=== PATIENT | male | born 1985 | race African-American/Black ===

== ENCOUNTER 2021-08-22 08:02 | Outpatient (CLI) | payer OTHER ==
[2021-08-22 09:13] VITALS: BP 125/87
--- NOTE | 2021-08-22 09:13 | SLEEP CARE CONSULTATION ---
Information from patient questionnaire entered by Chas Sadler MA. I have reviewed and concur with the information entered by Chas Sadler MA. This document represents the service I personally performed and the decisions made by me, Alayna Sherman ARNP. History of Present Illness Service Date and Time: 08/22/2021 0802 Reason for Visit: New patient (ONSET 01/2021, NO PRIORS, ) Chief Complaint: reports: Unrefreshed sleep, Snoring, Observed pauses in breat bladimir Date of Onset: 1 YEAR Usual bedtime: 8-10 PM Time it takes to fall asleep: 30 MINUTES Snores at night: Yes Observed to quit breathing while asleep: Yes Sleeps alone due to snoring: No Number of times waking at night: 2-3, sometimes less Reasons for waking at night: reports: Snoring, Gasping for air, Other (unknown reasons) Toss, Turn, or Twitch while sleeping: Yes Recalls having dreams: Yes Usually gets out of bed at: 0500; weekends [id number] Feels refreshed in the morning: No (not rested but unable to go back to sleep) Morning headache: No Sleepy or fatigued during the day: Yes Ever fallen asleep while driving: No Takes day naps: Yes (1-2 times on weekends) Dreams during day naps: Yes Prior sleep studies: No Additional HPI information: I had the pleasure of seeing EDGAR RICO today regarding the possibility of him having a sleep disorder. His current complaints are snoring and observed pauses in breathing. He states his fiance told him he is snoring loudly and that he stops breathing when sleeping. He has woken himself up snoring and maybe once gasping for air. 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 Patient is Single and lives in . Have you smoked in the past 12 months: No Cigarettes per day (20/pack): 20 Years of smokin Quit date: 12/2019 Smoking Pack Years: 2.0 Alcohol use: Yes Alcohol amount and frequency: 1XMONTHLY Caffeine use: Yes Caffeine amount and frequency: 1-2 X DAILY Family History Family history of sleep disordered breathing: Yes Family Hx Sleep Apnea: Father: Snoring, Sleep apnea - Treated Allergies and Home Medications Known drug allergies: No Drug allergies reviewed: Yes (NKDA) Home medication list reviewed: Yes Allergy and home medication list: Medications: Pantoprazole Fluticasone inhaler bid Albuterol inhaler, prn Review of Systems Cardiovascular: denies: high blood pressure Gastrointestinal: reports: heartburn Neurological: denies: headaches, head trauma Psychiatric: reports: anxiety, depression. denies: mood disorder Ear/Nose/Throat: reports: wisdom teeth removed (may have one left). denies: injury to nose, tonsillectomy Physical Exam Vital signs obtained and entered by: MELINA Sadler Blood Pressure: 125/87 (PULSE 83, RESP 16, RIGHT,) Heart Rate: 88 O2 Saturation: 97 (PAPER MASK) Height: 5 ft 9 in Weight: 192 lb 8 oz Body Mass Index: 28.4 BMI Classification: Overweight Neck circumference: 13.5 (INCHES) Nostrils: patent to airflow Mouth and throat: narrow oropharynx Soft palate: long Hard palate: normal Uvula: normal Uvula visualization: 50% Mallampati Class II Tongue: enlarged in size with teeth mills on lateral edges Tonsils: 1+ Neck: normal w/o lymphadenopathy or thyromegaly Heart: regular rate and rhythm Lungs: clear bilaterally Impression and Plan 1. Suspected Obstructive Sleep Apnea-Hypopnea Syndrome, as suggested by a history of loud and irregular snoring, observed cessation of breath while asleep, gasping or choking in sleep, unrefreshed sleep and cognitive impairment. Narrow oropharynx and obesity are common predisposing factors for obstructive sleep apnea-hypopnea syndrome. I recommend proceeding to polysomnography to confirm the diagnosis and to assess severity. If the patient has significant sleep disordered breathing, a manual CPAP titration study will also be performed to find the optimal treatment pressure. I informed the patient of what the sleep studies involve and after some discussion, obtained agreement to proceed. The pathophysiology of obstructive sleep apnea-hypopnea syndrome was discussed with the patient and health risks of cardiovascular and cerebrovascular disease if not treated. Risks of drowsy driving discussed in detail and patient advised to avoid long distance driving and to box puller at the first sign of drowsiness. Patient agreed to plan. * Schedule polysomnography * Avoid long distance driving or driving when feeling sleepy. * Avoid alcohol, sedative and muscle relaxant around bedtime. * Attempt to lose weight. * Review instructions provided by trained office staff on how to prepare for the sleep study. * Return for follow-up after sleep study completed. Counseling Topics: Weight loss health impact Visit Type: In Office Time Spent with Patient (minutes): 31 Provider Statement: I spent 100% of the Face to Face Visit with the patient with greater than 50% spent counseling the patient and coordination of care.
== END 2021-08-22 08:03 | disposition home or self-care (01) ==
LOC: SC 08:02
PROVIDERS: ATTEND Nurse Practitioner Family
DX: R06.83 Snoring (principal); G47.8 Other sleep disorders; R06.81 Apnea, not elsewhere classified; Z87.891 Personal history of nicotine dependence; E66.3 Overweight; Z68.28 Body mass index [BMI] 28.0-28.9, adult
CPT/HCPCS: 99203; 99212

== ENCOUNTER 2022-09-05 16:42 | Outpatient (CLI) | payer OTHER ==
--- NOTE | 2022-09-05 09:10 | SLEEP CARE CONSULTATION ---
Information from patient questionnaire entered by Lina Travis. I have reviewed and concur with the information entered by Lina Travis. This document represents the service I personally performed and the decisions made by me, Alayna Sherman ARNP. History of Present Illness Service Date and Time: 09/05/2022 0840 Previous diagnosis: Moderate, Obstructive Sleep Apnea-Hypopnea Syndrome AHI: 24.8 (in 08/2021) Reason for follow up: other (PT NEVER GOT RESULTS OF STUDY ) Prior sleep studies: No HPI additional information: EDGAR RICO returns for follow up and results of the performed polysomnography. Patient's sleep study dated 08/2021 showed moderate obstructive sleep apnea with an average AHI of 24.8 and alicia oxygen saturation of 84%. I explained the pathophysiology behind obstructive sleep apnea. We then spent quite a bit of time discussing different treatment options. For mild obstructive sleep apnea, surgery and oral appliance are alternatives to nasal CPAP therapy but in moderate or severe cases, nasal CPAP is the most effective and reliable treatment. Because apnea is primarily in supine position, then positional management therapy could be effective. Methods discussed such as positioning with pillows, using a T-shirt with tennis balls in the back or commercial products that have a pillow format on back to prevent supine sleep. I reviewed the impact of weight changes on sleep apnea and strongly recommended losing weight. After some discussion, the patient opted to go with the nasal CPAP therapy. Nasal autoCPAP set at 4-15 cmH20 will be ordered with rationale explained. A manual titration study will be ordered if unable to find optimal pressure with office adjustments. I explained how CPAP machine works and what to expect when using the machine. Using CPAP every night in order to get used to it was emphasized. Patient advised to put CPAP mask on before getting into bed so as not to fall asleep without CPAP. To assist acclimation to CPAP use, it could also be used for a short time during day while reading or watching TV. The patient was instructed to call the CPAP supplier to discuss any mechanical problem that may occur. If the mask given is uncomfortable or is difficult to keep on through the night even with adjustment, contact the CPAP supplier as many will replace with another mask style if notified before 30 days. If snoring or perceives is not getting enough air or too much air from the machine, notify this office. Patient counseled not drink alcohol less than 4 hours before bedtime as it can increase snoring and apnea. Patient was cautioned about risks of drowsy driving until sleepiness symptoms resolve. Patient denies drowsy driving. Sleep Study - Results Prior sleep studies: No Polysomnography/Home Sleep Study results: IMPRESSION: The quality of the study is good. The patient had normal sleep efficiency. The sleep architecture was abnormal for sleep fragmentation and reduced amount of time spent in slow wave sleep (N3). Respiratory monitoring showed moderate obstructive sleep apnea-hypopnea (AHI = 24.8) associated with frequent arousals, oxyhemoglobin desaturation and mild hypoxia (alicia oxygen saturation of 84%). The respiratory events occurred almost exclusively during supine sleep (supine AHI = 31.8; non-supine = 2.60). Snore was light to moderate in intensity. There was no significant periodic leg movement of sleep. Cardiac rh ythm was normal sinus rhythm without significant arrhythmia. No abnormal behavior (parasomnia) observed during the night. Subjective Initial [place] Sleepiness Scale score: 11 (08/22/2021) Current [place] Sleepiness Scale score: 11 (09/05/22) Allergies and Home Medications Known drug allergies: No Drug allergies reviewed: Yes Home medication list reviewed: Yes (no changes) Review of Systems Review of systems same as previous: Yes (no changes) Physical Exam Vital signs obtained and entered by: LINA Bergman MA Blood Pressure: 102/64 (LEFT ARM) Cuff size: regular Heart Rate: 71 O2 Saturation: 96 Height: 5 ft 9 in Weight: 198 lb 12.8 oz Body Mass Index: 29.3 BMI Classification: Overweight Impression and Plan 1. Obstructive Sleep Apnea-Hypopnea Syndrome, moderate, with lowest oxygen saturation of 84%. Obviously this is the cause of the patients symptoms of unrefreshed sleep, and excessive daytime sleepiness. Positive pressure therapy could benefit asthma. As mentioned above, the patient will be started on nasal autoCPAP therapy with pressure set at 4-15 cmH2O. Compliance guidelines also reviewed. A copy of compliance guidelines will be given for reference at check out. Because the apnea is more severe supine, I instructed to avoid sleeping supine using pillow positioning until able to start CPAP use. 2. Hypoxemia, mild, with a alicia oxygen saturation of 84% and 6 minutes spent under 90%. His baseline oxygen saturation was normal with an average oxygen saturation of 94%. 3. Overweight, unspecified. Currently patients BMI is 29.3. Obesity increases the risk of apnea, CPAP pressure requirements and overall health risks especially cardiovascular and diabetes. Thus patient is advised to lose weight. * Nasal auto CPAP therapy, pressure at 4-15 cm H2O. * Attempt to lose weight. * Avoid alcohol consumption near bedtime. * Avoid supine sleep until using CPAP. * The patient is again cautioned about driving until sleepiness completely resolves. * Return one month after CPAP obtained. I will assess response to therapy and compliance at that time. Counseling Topics: Sleeping position, Weight loss health impact Visit Type: In Office Time Spent with Patient (minutes): 20 Provider Statement: I spent 100% of the Face to Face Visit with the patient with greater than 50% spent counseling the patient and coordination of care.
[2022-09-05 09:15] VITALS: BP 102/64
== END 2022-09-05 16:43 | disposition home or self-care (01) ==
LOC: SC 16:42
PROVIDERS: ATTEND Nurse Practitioner Family
DX: G47.33 Obstructive sleep apnea (adult) (pediatric) (principal); R09.02 Hypoxemia; E66.3 Overweight; Z68.29 Body mass index [BMI] 29.0-29.9, adult
CPT/HCPCS: 99212; 99213